=== PATIENT | male | born 1980 | race Caucasian/White ===

== ENCOUNTER 2019-03-22 18:35 | Emergency (ER) | payer MEDICAID | END 2019-03-22 22:17 | disposition home or self-care (01) | LOC: FTE 22:17 | DX: S09.90XA Unspecified injury of head, initial encounter (principal); R51 Headache; W21.02XA Struck by soccer ball, initial encounter; Y92.322 Soccer field as the place of occurrence of the external cause | CPT/HCPCS: 70450; 99284-25 ==

== ENCOUNTER 2019-03-26 18:21 | Emergency (ER) | payer MEDICAID ==
[2019-03-26] MEDS: ONDANSETRON (ODT) 4 MG TAB ODT (22:06)
[2019-03-26] MEDS: MECLIZINE 12.5 MG TAB PO (22:58)
== END 2019-03-26 23:51 | disposition home or self-care (01) ==
LOC: FTE 23:51
DX: R42 Dizziness and giddiness (principal)
CPT/HCPCS: 99283; Z7502